=== PATIENT | female | born 1995 | race Caucasian/White ===

== ENCOUNTER → 2019-11-28 15:06 | Outpatient (CLI) | payer BC, SELFPAY ==
[2019-11-28 14:14] VITALS: BMI 22.1
[2019-11-28 15:35] LABS: Absolute Lymphocyte Count 1.85 X10^3/uL (0.83-4.51); Absolute Neutrophil Count 4.9 X10^3/uL (2.0-7.7); Basophil# 0.03 X10^3/uL; Basophil% 0.4 % (0-1); Eosinophil# 0.08 X10^3/uL; Eosinophils% 1.1 % (0-5); Hematocrit 37.8 % (37-47); Hemoglobin 12.8 g/dL (12.0-15.0); Lymphocyte # 1.85 X10^3/ul (4.0); Lymphocyte % 25.2 % (19-41); Mean Corp Hgb Conc 33.9 g/dL (32-36); Mean Corpuscular Hgb 29.4 pg (27.0-32.0); Mean Corpuscular Volume 86.7 fL (81-99); Mean Platelet Vol. 9.7 fl (6.2-12.0); Monocyte# 0.49 X10^3/uL; Monocyte% 6.7 % (0-10); NRBC Flagged by Analyzer 0 % (0-5); Neutrophil # 4.87 X10^3/uL (2.7-7.7); Neutrophil % 66.3 % (47-70); Platelet Count 290 K/mm3 (150-450); RBC Distribution Width CV 11.9 % (11.6-14.6); RBC Distribution Width SD 37.7 fl (35.1-43.9); Red Blood Count 4.36 M/mm3 (4.2-5.4); White Blood Count 7.3 K/mm3 (4.4-11.0)
[2019-11-28 18:51] LABS: Amphetamine Urine VISTA NEGATIVE (<1000 ng/mL); Barbiturate Urine VISTA NEGATIVE (< 200 ng/mL); Benzodiazepine Urine VISTA NEGATIVE (< 200 ng/mL); Cocaine Urine VISTA NEGATIVE (< 300 ng/mL); Ecstacy Urine VISTA NEGATIVE (< 500 ng/mL); Methadone Urine VISTA NEGATIVE (< 300 ng/mL); PCP Urine VISTA NEGATIVE (< 25 ng/mL); THC Urine VISTA NEGATIVE (< 50 ng/mL); Vista UDS pH Range 6
[2019-11-28 20:47] LABS: Chlamydia Trachomatis by PCR POSITIVE (Negative); Neisserai gonorrhoeae by PCR Negative (Negative); Probe Check PASS; Sample Adequacy Control PASS; Specimen Processing Control PASS
[2019-11-29 10:17] LABS: HIV - WCH Non-Reactive (Nonreactive); Hepatitis B Surface Antigen Non-Reactive (Nonreactive); Hepatitis C Antibody Non-Reactive (Nonreactive); Rubella IgG 68.2 IU/mL
[2019-12-01 04:31] LABS: Rapid Plasmin Reagin (RPR) NONREACTIVE (NONREACTIVE)
[2019-12-03 13:11] LABS: HPV Reflexed? NOT INDICATED
== END ==
PROVIDERS: PCP Family Medicine; Referring Provider Obstetrics & Gynecology; Visit Provider Obstetrics & Gynecology
DX: Z12.4 Encounter for screening for malignant neoplasm of cervix (principal); Z34.90 Encounter for supervision of normal pregnancy, unspecified, unspecified trimester
CPT/HCPCS: 36415; 80307; 85025; 86592; 86703; 86762; 86803; 86850; 86900; 86901; 87086; 87088; 87340; 87491; 87591; 88175; G0145

== ENCOUNTER → 2019-12-26 16:54 | Outpatient (CLI) | payer BC, SELFPAY ==
[2019-12-26 10:25] VITALS: BMI 22.1
[2019-12-26 19:16] LABS: Chlamydia Trachomatis by PCR Negative (Negative); Neisserai gonorrhoeae by PCR Negative (Negative); Probe Check PASS; Sample Adequacy Control PASS; Specimen Processing Control PASS
== END ==
PROVIDERS: PCP Family Medicine; Referring Provider Obstetrics & Gynecology; Visit Provider Obstetrics & Gynecology
DX: O98.819 Other maternal infectious and parasitic diseases complicating pregnancy, unspecified trimester (principal); A74.9 Chlamydial infection, unspecified; Z3A.00 Weeks of gestation of pregnancy not specified
CPT/HCPCS: 87491; 87591

== ENCOUNTER → 2020-02-09 12:37 | Outpatient (CLI) | payer BC, SELFPAY ==
[2019-12-26 10:25] VITALS: BMI 22.1
[2020-01-23 15:39] VITALS: BMI 22.1
--- NOTE | 2020-02-09 12:37 | US_ITS ---
STUDY: SECOND AND THIRD TRIMESTER OBSTETRICAL ULTRASOUND REASON FOR EXAM: Female, 24 years old anatomy LMP: 09/26/2019. TECHNIQUE: Transabdominal TECHNICAL QUALITY: Adequate. PRIOR ULTRASOUND: None. FINDINGS: There is a single intrauterine fetus. The fetus is in a cephalic presentation. There is demonstrated cardiac activity with a heart rate of 155 bpm. There is a normal amniotic fluid volume. The largest amniotic fluid pocket measures 4.9 cm x 2.6 cm. The amniotic fluid index (LUAN) is within normal limits. The placenta is posterior in location and is not low lying. There are Grade 1 placental changes. The cervix measures 4.7 cm in length. The bilateral adnexal regions are normal. BIOMETRY: BPD: 4.7 cm: 20 weeks, 0 days HC: 16.8 cm: 19 weeks, 3 days AC: 14.3 cm: 19 weeks, 4 days FL: 3.0 cm: 19 weeks, 0 days CI: 86% FL/BPD: 64% FL/HC: FL/AC: 21% HC/AC: 1.18 age by current US: 19 weeks, 2 days. DILSHAD by current US: 07/03/2020. Estimated weight: 2292 grams, +/- 43 grams, 37 %. Age by LMP: 19 weeks, 3 days. DILSHAD by LMP: 07/22/2020. ANATOMY: Gender: Female Cranium: Normal lateral ventricles. Normal choroid plexus. Normal cerebellum. Normal cisterna magna. Normal face, nose and lips. Chest: Normal 4-chamber heart. Abdomen/Pelvis: Normal diaphragm. Normal stomach. Normal abdominal wall. Normal cord insertion. Normal 3 vessel cord. Normal kidneys. Normal bladder. Spine: Normal cervical spine. Normal thoracic spine. Normal lumbar spine. Normal sacrum. Extremities: Normal bilateral upper extremities. Normal bilateral lower extremities. US/OB Anatomy Scan IMPRESSION: Single live intrauterine gestation with a mean gestational age of 19 weeks and 2 days. Electronically Signed: Reynaldo Khan, at 14:52 EDT , Service support ,
== END ==
PROVIDERS: PCP Family Medicine; Referring Provider Obstetrics & Gynecology; Visit Provider Obstetrics & Gynecology
DX: O36.92X0 Maternal care for fetal problem, unspecified, second trimester, not applicable or unspecified (principal); Z3A.19 19 weeks gestation of pregnancy
CPT/HCPCS: 76805

== ENCOUNTER → 2020-04-19 15:04 | Outpatient (CLI) | payer BC, SELFPAY ==
[2020-03-19 16:18] VITALS: BMI 25.4
[2020-04-19 15:32] LABS: Absolute Lymphocyte Count 2.72 X10^3/uL (0.83-4.51); Absolute Neutrophil Count 8.6 X10^3/uL (2.0-7.7); Basophil# 0.02 X10^3/uL; Basophil% 0.2 % (0-1); Eosinophil# 0.16 X10^3/uL; Eosinophils% 1.3 % (0-5); Hematocrit 32.2 % (37-47); Hemoglobin 10.7 g/dL (12.0-15.0); Lymphocyte # 2.72 X10^3/ul (4.0); Mean Corp Hgb Conc 33.2 g/dL (32-36); Mean Corpuscular Hgb 29.5 pg (27.0-32.0); Mean Corpuscular Volume 88.7 fL (81-99); Monocyte# 0.82 X10^3/uL; Monocyte% 6.6 % (0-10); NRBC Flagged by Analyzer 0 % (0-5); Neutrophil # 8.58 X10^3/uL (2.7-7.7); Neutrophil % 69.4 % (47-70); Platelet Count 298 K/mm3 (150-450); RBC Distribution Width CV 12.7 % (11.6-14.6); Red Blood Count 3.63 M/mm3 (4.2-5.4); White Blood Count 12.4 K/mm3 (4.4-11.0)
[2020-04-19 16:09] LABS: Glucose Challenge Gest 1H 50g 103 mg/dL (70-140)
[2020-04-24 04:09] LABS: Chlamydia By Nucleic Acid AMP Negative (Negative)
[2020-04-24 08:08] LABS: Gonococcus By Nucleic Acid AMP Negative (Negative)
== END ==
PROVIDERS: PCP Family Medicine; Referring Provider Obstetrics & Gynecology; Visit Provider Obstetrics & Gynecology
DX: O26.899 Other specified pregnancy related conditions, unspecified trimester (principal); N89.8 Other specified noninflammatory disorders of vagina; Z13.1 Encounter for screening for diabetes mellitus; Z3A.00 Weeks of gestation of pregnancy not specified
CPT/HCPCS: 36415; 82950; 85025; 87070; 87205; 87491; 87591

== ENCOUNTER → 2020-04-30 18:08 | Outpatient (CLI) | payer BC, SELFPAY ==
[2020-04-19 15:31] VITALS: BMI 26.6
== END ==
PROVIDERS: PCP Family Medicine; Referring Provider Obstetrics & Gynecology; Visit Provider Obstetrics & Gynecology
DX: Z20.828 Contact with and (suspected) exposure to other viral communicable diseases (principal)
CPT/HCPCS: 87635; C9803; U0003

== ENCOUNTER → 2020-06-04 17:00 | Outpatient (CLI) | payer BC, SELFPAY ==
[2020-06-04 15:58] VITALS: BMI 28.3
== END ==
PROVIDERS: PCP Family Medicine; Visit Provider Obstetrics & Gynecology
DX: Z34.90 Encounter for supervision of normal pregnancy, unspecified, unspecified trimester (principal)
CPT/HCPCS: 87081

== ENCOUNTER → 2020-06-11 17:05 | Outpatient (CLI) | payer BC, SELFPAY ==
[2020-06-11 15:15] VITALS: BMI 28.5
[2020-06-11 20:33] LABS: Chlamydia Trachomatis by PCR Negative (Negative); Neisserai gonorrhoeae by PCR Negative (Negative); Probe Check PASS; Sample Adequacy Control PASS; Specimen Processing Control PASS
== END ==
PROVIDERS: PCP Family Medicine; Visit Provider Obstetrics & Gynecology
DX: O98.819 Other maternal infectious and parasitic diseases complicating pregnancy, unspecified trimester (principal); A74.9 Chlamydial infection, unspecified; Z3A.00 Weeks of gestation of pregnancy not specified
CPT/HCPCS: 87491; 87591

== ENCOUNTER → 2020-06-22 10:02 | Outpatient (CLI) | payer BC, SELFPAY ==
[2020-06-11 15:15] VITALS: BMI 28.5
[2020-06-18 15:45] VITALS: BMI 28.5
== END ==
PROVIDERS: PCP Family Medicine; Referring Provider Nurse Practitioner Women's Health; Visit Provider Nurse Practitioner Women's Health
DX: Z34.03 Encounter for supervision of normal first pregnancy, third trimester (principal)
CPT/HCPCS: 87635; C9803; U0005; U0003

== ENCOUNTER 2020-07-09 18:45 | Inpatient (IN) | payer BC, SELFPAY ==
[2020-07-02 16:06] VITALS: BMI 29.2
[2020-07-09] MEDS: Lactated Ringers 1,000 ML 50 ML IV (18:50)
[2020-07-09 18:51] VITALS: BMI 29.7
[2020-07-09 19:15] LABS: Absolute Lymphocyte Count 2.33 X10^3/uL (0.83-4.51); Absolute Neutrophil Count 7.5 X10^3/uL (2.0-7.7); Basophil# 0.04 X10^3/uL; Basophil% 0.4 % (0-1); Eosinophils% 0.9 % (0-5); Hematocrit 34.6 % (37-47); Hemoglobin 11.2 g/dL (12.0-15.0); Lymphocyte # 2.33 X10^3/ul (4.0); Lymphocyte % 21.6 % (19-41); Mean Corp Hgb Conc 32.4 g/dL (32-36); Mean Corpuscular Hgb 27.1 pg (27.0-32.0); Mean Corpuscular Volume 83.8 fL (81-99); Monocyte# 0.73 X10^3/uL; Monocyte% 6.8 % (0-10); NRBC Flagged by Analyzer 0 % (0-5); Neutrophil % 69.7 % (47-70); Platelet Count 338 K/mm3 (150-450); RBC Distribution Width CV 13.4 % (11.6-14.6); RBC Distribution Width SD 40.7 fl (35.1-43.9); Red Blood Count 4.13 M/mm3 (4.2-5.4); White Blood Count 10.8 K/mm3 (4.4-11.0)
[2020-07-09 19:52] VITALS: BP 123/65; PULSE 96; TEMP 36.9; O2SAT 100
--- NOTE | 2020-07-09 20:33 | HP.PCM_ITS ---
- Problem List (1) 37 weeks gestation of Status: Acute Comment: electronic test ordered 06/11/20 NEGATIVE COVID (2) Anemia affecting Status: Acute Qualifiers: Comment: iron added (3) Chlamydia infection affecting Status: Acute Qualifiers: Comment: treated 11/28. Retest 12/18 negative. Re-tested in third trimester (04/19) (4) History of depression Status: Acute Comment: no meds, stable. (5) Status: Acute Qualifiers: Comment: declined genetic, carrier, and NTD screening. Normal anatomy (6) Supervision of normal Status: Acute Qualifiers: Comment: PRR DILSHAD 07/02/20 girl - jeremy Bentley History and Physical Date of Admission: 07/09/20 Intake Vital Signs 07/02/20 Height 5 ft 3 in 07/02/20 Weight: 165 lb 07/02/20 BMI 29.2 07/02/20 BP 112/82 H Intake Visit Reasons: 39 WK OB Chief Complaint: est ob Orthopedic Assistant Required: No Is patient in pain?: No Allergies No Known Allergies Allergy (Verified 07/02/20 16:06) Medications docosahexaenoic acid 200 mg capsule mg PO 11/28/19 history Confirmed 07/02/20 Last Menstral Period: 09/26/19 Zika: Zika virus screening: Negative : No PFSH PFSH Medical History Depression with anxiety (Acute) Family History Mother Hypertension Social History (Updated 07/02/20 @ 16:[address] Phyllis rOtez MD) alcohol intake: never substance use type: does not use caffeine: Yes what type of physical activity do you participate in: walking, bicycling frequency: 1-2 times per week seatbelt use: always do you feel safe at home: Yes additional social history: Engaged- [employer]-Works at [employer] Patient works at [employer] Pregancy History 1 Elective abortions Hx Para Spontaneous abortions Hx # Term Pregnancies Ectopic pregnancies Hx # Pregnancies Multiple births # of living children HPI 39 WK OB: Details: MARGARITA FRANCO is a 25 year old who presents for IOL secondary to po stdates OB Visit DILSHAD Calculator Estimated Delivery Date Method Current WG Current Estimate 07/02/20 LMP (Certain) 40w 0d Other Estimates 06/30/20 Ultrasound #1 40w 2d Expected Delivery Route/Plan Labor Preferences- labor support person: Dax pain management options preferred: open to epidural cut cord/dad catch: yes, no : yes PP control planned: pill discussed possible routes of delivery and associated risks: discussed possible delivery modalities and possible indications for each including R/B/A of , VAVD, FAVD and CS. questions answered. special requests: Specific Issue/Plans flu vaccine: declines tdap vaccine: 04/19 rhogam: NA LARC form signed: declined movement and labor precautions reviewed. Problem list reviewed and updated with the most current plan of care details and appropriate orders placed. Relevant counseling for the gestational age provided. Continue routine care and follow up unless otherwise noted in visit notes/problem list details Initial Weight: 128 lb Date EGA Weight BP Urine Prot Glucose FHR FuHt Pres Dilation Effaced St Visit Note 12/26/19 13w 0d 128 lb (+0 oz) 104/76 Negative Negative 160 SM- no vb cramping 01/23/20 17w 0d 133 lb 8 oz (+5 lb 8 oz) 110/62 Negative Negative 146 MH-No VB, LOF. Feels well. Enc CB classes 02/20/20 21w 0d 139 lb (+11 lb) 110/64 Negative Negative 156 MH-Good FM. NO VB, LOF. Declines flu vaccine 03/19/20 25w 0d 144 lb (+16 lb) 110/62 Negative Negative 150 25 SM- no vb lof good fm no regular ctx 04/19/20 29w 3d 150 lb 2 oz (+22 lb 2 oz) 120/70 Negative 250 g/dL 150 28 GP - No LOF, VB, DFM, ctx. TDAP given today. Passed GCT. GP - No LOF, VB, DFM, ctx. TDAP given today. Passed GCT. Evidence of yeast infection on exam - terazol prescribed. 05/14/20 33w 0d 156 lb (+28 lb) 110/80 145 33 SM- no vb lof good fm no reuglar ctx 05/28/20 35w 0d 159 lb 6 oz (+31 lb 6 oz) 110/70 Negative Negative 145 35 Cephalic GP - no LOF, VB, DFM, ctx. Denies complaints. 06/04/20 36w 0d 160 lb 2 oz (+32 lb 2 oz) 110/80 Negative Negative 150 36 Cephalic 0.5 50 -2 GP - no LOF, VB, DFM, ctx . GBS done today. 06/11/20 37w 0d 161 lb (+33 lb) 112/62 Negative Negative 138 37 Cephalic MH-No VB, LOF. Cx still .5cm. Good FM. No reg ctx. 06/18/20 38w 0d 161 lb 6 oz (+33 lb 6 oz) 118/74 Trace Negative 145 38 Cephalic 1 50 -2 GP - no LOF, VB, DFM, ctx . Discussed routes of delivery. 06/25/20 39w 0d 165 lb (+37 lb) 111/74 Negative Negative 155 39 Cephalic 1 SM- no vb lof good fm no regular ctx 07/02/20 40w 0d 165 lb (+37 lb) 112/82 145 40 Cephalic 1 50 -2 Sm- no vb lof good fm no reuglar ctx discussed IOL 41 weeks ACOG First Trimester First Trimester: Desire for , Alcohol, Tobacco Cessation, Illicit/Recreational Drug/Substance Use, Intimate Partner Violence, Barriers to care, Unstable Housing, Communication Barriers, Environmental/Work Hazards, Anticipated Course of Care, Toxoplasmosis Precations, Use of Any medications, Sexual activity, Exercise, Dental Care, Sauna/Hot tub use, Seat Belt use, Childbirth classes/Hospital facilities, , Travel, Indications for US and Screening for Aneuploidy Diagnostics Diagnostics Diagnostics Glucose 1 Hr 50 gm 103 mg/dL (70-140) 04/19/20 Hgb 10.7 g/dL (12.0-15.0) L 04/19/20 Hct 32.2 % (37-47) L 04/19/20 Chlamydia DNA (CHRISTOPHER) Negative (Negative) 04/19/20 N.gonorrhoeae DNA (CHRISTOPHER) Negative (Negative) 04/19/20 Details: HIV: Urine Culture: Sequential Screen: NIPT Screen: ROS Const Reports system reviewed and no additional complaints, except as docu Card Reports system reviewed and no additional complaints, except as docu Resp Reports system reviewed and no additional complaints, except as docu GI Reports system reviewed and no additional complaints, except as docu, Reports nausea Reports system reviewed and no additional complaints, except as docu Musc Reports system reviewed and no additional complaints, except as docu Exam Const General: cooperative, healthy appearing, comfortable, anxious HENMT Head: normal to inspection Nose: external nose normal Face and sinus: normal facial exam Neck Neck: normal visual inspection, full ROM, no lymphadenopathy Thyroid: thyroid normal Chest Chest palpation & inspection: normal inspection of the chest Resp Effort & Inspection: normal respiratory effort GI Inspection: normal to inspection Palpation: soft, other (gravid uterus) Other: vertex and appropriate size for gestational age Other: Cervical Exam: Extrem General: pedal edema Assessment & Plan 25 yo @ 41 weeks presents for IOL postdates Patient presents IOL, plan management for with cytotec. Pain management: Plans epidural. GBS negative. Management of any complications: None I have reviewed the [facility] and made any clinically relevant updates. Orders Orders: POC Urinalysis 2 Dip (Clinic) Today Coding Level of Care Code OB Routine
[2020-07-09 23:42] VITALS: BP 124/72; PULSE 102; O2SAT 99
[2020-07-10] VITALS (70 sets, daily range): BP systolic 96–222; BP diastolic 55–97; PULSE 92–164; RESP 18; TEMP 36.7–37.6; O2SAT 82–100
[2020-07-10] MEDS: oxyCODONE 5 MG Tablet PO (00:24)
[2020-07-10] MEDS: Lactated Ringers 500 ML 999 ML IV ×2 (01:02→13:02)
[2020-07-10] MEDS: Oxytocin 30 units/NS 500 ml 30 UNITS/500 ML IV.SOLN IV (01:16)
[2020-07-10] MEDS: fentaNYL-bupivacaine (epidural) 100 ML BAG EPIDURAL ×3 (02:14→11:00)
[2020-07-10] MEDS: Lactated Ringers 1,000 ML 200 ML IV ×2 (04:57→10:00)
[2020-07-10] MEDS: Mag Hydrox/Al Hydrox/Simeth 30 ML UDC PO (05:04)
[2020-07-10] MEDS: Acetaminophen 500 MG Tablet PO (11:06)
[2020-07-10] MEDS: Oxytocin 30 units/NS 500 ml 30 UNITS/500 ML IV.SOLN 334 UNITS IV (15:30)
[2020-07-10] MEDS: Methylergonovine 0.2 MG/ML Ampul IM (15:45)
--- NOTE | 2020-07-10 15:54 | OP.PCM_ITS ---
Problem List (1) 37 weeks gestation of Status: Acute Comment: electronic test ordered 06/11/20 NEGATIVE COVID (2) Anemia affecting Status: Acute Qualifiers: Comment: iron added (3) Chlamydia infection affecting Status: Acute Qualifiers: Comment: treated 11/28. Retest 12/18 negative. Re-tested in third trimester (04/19) (4) History of depression Status: Acute Comment: no meds, stable. (5) Status: Acute Qualifiers: Comment: declined genetic, carrier, and NTD screening. Normal anatomy (6) Supervision of normal Status: Acute Qualifiers: Comment: PRR DILSHAD 07/02/20 girl - jeremy Bentley Vaginal Delivery Maternal Presentation: Medically Indicated Induction Induction labor 41 weeks Medical Reason for Induction: Post term Amniotic Membrane Rupture Type: Artificial Amniotic Fluid Description: Clear Final DILSHAD: 07/02/20 Gestational age: 41 Weeks and 1 Days Date of Procedure: 07/10/20 Pre-Operative Diagnosis: Induction of labor postdates Post-Operative Diagnosis: Same Surgery/ Procedure Performed: Spontaneous Vaginal Delivery Type of Anesthesia: Epidural Description of Procedure: Patient began pushing and delivered the head in the [ANDI] presentation. The head was delivered atraumatically. The anterior and posterior shoulders delivered without complication followed by the rest of the infant and the infant was placed on the maternal abdomen. Delayed cord clamping was employed for approximately 60 seconds. Cord was clamped and cut and gentle traction was applied to the cord and the placenta delivered spontaneously immediately following it was noted to be intact with three-vessel cord. The perineum and vagina were inspected and noted to have a second-degree small perineal laceration repaired in the usual fashion with 3-0 Vicryl repeat and a left clitoral laceration repaired in the usual fashion with 3-0 Vicryl Rapide. EBL was 100 cc with some mild uterine atony treated with Methergine and Pitocin and bimanual massage. Patient and infant tolerated delivery well. Presentation: ANDI Placental Delivery Description: Spontaneous Placenta Disposition: [facility] Cord Entanglement: None Estimated Blood Loss: 400 A gender: Female Episiotomy Description: None Laceration: Perineal Extension/lac - left clitoral, 2nd degree Medications given after delivery: IV Pitocin, IM Methergin Complications: None Multi Select Codes - Urinary/Genital Urinary/Genital CPT Codes: 23306 Vaginal Delivery [facility]
[2020-07-10] MEDS: Naproxen 250 MG Tablet 500 MG PO (16:42)
[2020-07-10] MEDS: Acetaminophen 500 MG Tablet 1000 MG PO (23:11)
[2020-07-11] VITALS (11 sets, daily range): BP systolic 97–121; BP diastolic 56–73; PULSE 100–115; RESP 16–18; TEMP 36.3–37.7; O2SAT 98–99
[2020-07-11] MEDS: Naproxen 250 MG Tablet 500 MG PO ×2 (00:53→10:16)
--- NOTE | 2020-07-11 03:47 | NURSING ---
report received from tristin priest . this rn to assume care of pt at this time.
[2020-07-11] MEDS: Acetaminophen 500 MG Tablet 1000 MG PO ×2 (07:57→15:56)
--- NOTE | 2020-07-11 08:09 | PCM.PN.OB ---
Patient Problems: Active and Suspected Problems (Last Reviewed 07/02/20 @ 16:06 by Faiza Figueroa) 37 weeks gestation of (Acute) electronic test ordered 06/11/20 NEGATIVE COVID Anemia affecting (Acute) iron added Chlamydia infection affecting (Acute) treated 11/28. Retest 12/18 negative. Re-tested in third trimester (04/19) History of depression (Acute) no meds, stable. (Acute) declined genetic, carrier, and NTD screening. Normal anatomy Supervision of normal (Acute) PRR DILSHAD 07/02/20 girl - jeremy Bentley Subjective: Patient doing well without complaints. Tolerating PO. Ambulating and voiding without difficulty. well. Denies chest pain, shortness of breath, calf pain/swelling, fevers, chills, lightheadedness. - Physical Exam Vitals/I&O's: Vital Signs Temp Pulse Resp BP Pulse Ox 99.2 F H 105 H 16 97/58 L 100 07/11/20 05:20 07/11/20 05:21 07/11/20 05:20 07/11/20 05:21 07/10/20 17:51 Oxygen Delivery Method Room Air Weight: 167 lb 8.821 oz Body Mass Index (BMI) 29.7 Intake and Output for Last 24 Hours 07/09/20 07/10/20 07/11/20 23:59 23:59 23:59 Intake Total 5711.27 / 5711.27 Output Total 1250 / 1250 Balance 4461.27 / 4461.27 General: Alert, Oriented x3 Abdomen: Soft, Non-Distended, - - FF below U Microbiology Past 72 Hours 07/09/20 19:00 Mucosa - Nose SARS-CoV-2 Antigen (Rapid) - Final Current Medications Acetaminophen (Acetaminophen 500 Mg Tablet) 1,000 mg PO Q8H PRN PRN PRN Reason: Pain Score 1-3 Last Admin: 07/11/20 07:57 Dose: 1,000 mg Documented by: Bisacodyl (Bisacodyl 10 Mg Suppository) 10 mg RC UD PRN PRN Reason: If no BM Dibucaine (Dibucaine 30 Gm Tube) 1 applic TOPICAL TID PRN PRN; Protocol PRN Reason: Discomfort Hydrocortisone (Hydrocortisone 2.5% Crm) 1 applic TOPICAL TID PRN PRN; Protocol PRN Reason: Discomfort Methylergonovine Maleate (Methylergonovine 0.2 Mg/Ml Ampul) 0.2 mg IM X1 PRN PRN Reason: Excess bleeding/uterine atony Last Admin: 07/10/20 15:45 Dose: 0.2 mg Documented by: Naproxen (Naproxen 250 Mg Tablet) 500 mg PO Q8H PRN PRN PRN Reason: Pain Score 1-3 Last Admin: 07/11/20 00:53 Dose: 500 mg Documented by: Ondansetron HCl (Ondansetron 4 Mg/2 Ml Vial) 4 mg IV Q4H PRN PRN PRN Reason: Nausea Oxycodone HCl (Oxycodone 5 Mg Tablet) 5 - 10 mg PO Q4H PRN PRN PRN Reason: Pain Score 4-10 Senna/Docusate Sodium (Senna/Docusate Sodium 1 Tablet) 1 - 2 tablet PO DAILY PRN PRN PRN Reason: Constipation Simethicone (Simethicone 80 Mg Tablet) 80 mg PO PCHS PRN PRN Reason: Indigestion/Stomach pain Last Admin: 07/11/20 07:54 Dose: 80 mg Documented by: Sodium Chloride (0.9% Saline Lock 10 Ml Syringe) 5 - 15 ml IV UD PRN PRN Reason: SALINE FLUSH Medical Necessity - Tobacco Use Smoking Status: Former smoker Assessment/Plan All Active Problems (Last Reviewed 07/02/20 @ 16:06 by Faiza Figueroa) 37 weeks gestation of (Acute) Anemia affecting (Acute) Chlamydia infection affecting (Acute) History of depression (Acute) (Acute) Supervision of normal (Acute) Lab test negative for COVID-19 virus (Ruled-out) s/p PPD # 1 1. routine post delivery care 2. breast feeding- support given 3. rh positive 4. rubella immune 5. Reviewed anjana care 6. home today
--- NOTE | 2020-07-11 08:11 | PCM.DCVAG ---
Additional Instructions: If you experience any of the following, contact your healthcare provider. Bleeding that soaks a pad every hour for 2 hours Fever 100.4 or higher Unrelieved incision or abdominal pain Swelling, redness, discharge or bleeding from your incision or episiotomy site Your incision begins to separate Problems urinating (including inability to urinate or burning while urinating). Visual changes Severe headache Flu-like symptoms Pain or redness in one of both of your breasts Pain, warmth, tenderness or swelling in your legs, especially the calf area Frequent nausea and vomiting Symptoms of depression or anxiety If you experience any of the following, call 911 or go to the nearest Emergency Room. Chest pain Problems breathing Seizure activity Partial or complete paralysis of a body part, slurred speech, weakness or drooping of the face, or a sudden inability to walk or hold your balance Allergies/Adverse Reactions: Allergies No Known Allergies Allergy (Verified 07/02/20 16:06) Medications to take at Discharge Pnv No.103/Folic/Om3s/Fish Oil [ Gummies] 2 ea PO DAILY 07/09/20 Primary Care Physician: Cristi Hood MD [Primary Care Provider] - Test Results: Test results from this visit will be discussed in further detail at your follow-up appointment, if applicable.
--- NOTE | 2020-07-11 08:11 | DCINST_ITS ---
Additional Instructions: If you experience any of the following, contact your healthcare provider. * Bleeding that soaks a pad every hour for 2 hours * Fever 100.4 or higher * Unrelieved incision or abdominal pain * Swelling, redness, discharge or bleeding from your incision or episiotomy site * Your incision begins to separate * Problems urinating (including inability to urinate or burning while urinating). * Visual changes * Severe headache * Flu-like symptoms * Pain or redness in one of both of your breasts * Pain, warmth, tenderness or swelling in your legs, especially the calf area * Frequent nausea and vomiting * Symptoms of depression or anxiety If you experience any of the following, call 911 or go to the nearest Emergency Room. * Chest pain * Problems breathing * Seizure activity * Partial or complete paralysis of a body part, slurred speech, weakness or drooping of the face, or a sudden inability to walk or hold your balance Allergies/Adverse Reactions: Allergies No Known Allergies Allergy (Verified 07/02/20 16:06) Medications to take at Discharge Pnv No.103/Folic/Om3s/Fish Oil [ Gummies] 2 ea PO DAILY 07/09/20 Primary Care Physician: Cristi Hood MD [Primary Care Provider] - Test Results: Test results from this visit will be discussed in further detail at your follow- up appointment, if applicable.
[2020-07-11] MEDS: oxyCODONE 5 MG Tablet PO (10:17)
== END 2020-07-11 18:25 | disposition home or self-care (01) | DRG 807 ==
PROVIDERS: Admitting Provider Obstetrics & Gynecology; PCP Family Medicine; Visit Provider Obstetrics & Gynecology
DX: O48.0 Post-term pregnancy (principal); Z37.0 Single live birth; O70.1 Second degree perineal laceration during delivery; O62.2 Other uterine inertia; Z3A.41 41 weeks gestation of pregnancy; Z87.891 Personal history of nicotine dependence
CPT/HCPCS: 59025; 59050; 85025; 86850; 86900; 86901; 87426; 99218; J7120; G0378

== ENCOUNTER → 2023-01-21 | Outpatient (CLI) | payer MEDICAID, SELFPAY ==
[2023-01-21 10:46] LABS: HIV - WCH Non-Reactive (Nonreactive); Hepatitis C Antibody Non-Reactive (Nonreactive); Syphilis Antibodies Non-reactive
[2023-01-22 05:07] LABS: HSV 1 IgG < 0.91 index (0.00-0.90); HSV 2 IgG < 0.91 index (0.00-0.90)
[2023-01-23 09:09] LABS: Chlamydia By Nucleic Acid AMP Negative (Negative); Gonococcus By Nucleic Acid AMP Negative (Negative)
[2023-01-26 16:50] LABS: HPV Reflexed? NOT INDICATED
== END | disposition home or self-care (01) ==
PROVIDERS: PCP Family Medicine; Referring Provider Nurse Practitioner Women's Health; Visit Provider Nurse Practitioner Women's Health
DX: Z12.4 Encounter for screening for malignant neoplasm of cervix (principal); Z20.2 Contact with and (suspected) exposure to infections with a predominantly sexual mode of transmission
CPT/HCPCS: 36415; 86695; 86696; 86703; 86780; 86803; 87491; 87591; 88175; G0145